=== PATIENT | female | born 1970 | race Caucasian/White ===

== ENCOUNTER → 2017-03-28 | Outpatient (CLI) | payer OTHER | LOC: COL.RAD 09:31 | DX: K80.20 Calculus of gallbladder without cholecystitis without obstruction (principal) ==

== ENCOUNTER 2020-05-19 07:07 | Inpatient (IN) | payer BC ==
[2020-05-19] VITALS (755 sets, daily range): BP systolic 100–132; BP diastolic 57–81; PULSE 58–63; TEMP 98.2–98.7; O2SAT 80–100
[~2020-05-19] VITALS: Ht 157.5 cm; Wt 75.5 kg
[2020-05-19] MEDS ORDERED: ISOPTIN SR240 MG PO (07:29)
[2020-05-19] MEDS ORDERED: IMITREX100 MG PO (07:36)
[2020-05-19 07:54] LABS: BASO % 0.3 % (0.0-2.0); EOS # 0.1 (0.0-0.7); EOS % 1.4 % (0-4.0); GRAN # 4.7 (1.4-6.5); GRAN % 64.3 % (42.2-75.2); LYMPH % 27.5 % (20.0-51.0); MEAN CELL VOLUME 89 fl (80.0-100.0); MEAN CORPUSCULAR HEMOGLOBIN 30 pg (27.0-31.0); MEAN CORPUSCULAR HGB CONC 33 g/dl (33.0-37.0); MEAN PLATELET VOLUME 10.1 fl (7.4-10.4); MONO # 0.4 (0.1-0.6); MONO % 5.7 % (1.7-9.3); PLATELET COUNT 306 K/mm3 (130-400); RED BLOOD COUNT 4.05 M/mm3 (4.10-5.30); REDCELL DISTRIBUTION WIDTH-CV 12.9 % (11.5-14.5)
[2020-05-19 08:00] LABS: HEMATOCRIT 36.2 % (37.0-47.0)
[2020-05-19 08:01] LABS: ALANINE AMINOTRANSFERASE 25 U/L (4-34); ALBUMIN 3.9 gm/dL (3.5-5.0); ALKALINE PHOSPHATASE 66 U/L (50-136); ANION GAP 11 mmol/L (7-16); AST,SGOT 32 U/L (15-37); BILIRUBIN,TOTAL 0.5 mg/dL (0.0-1.0); BLOOD UREA NITROGEN 15 mg/dL (7-17); CALCIUM 8.8 mg/dL (8.4-10.2); CARBON DIOXIDE 22 mmol/L (22-30); CHLORIDE 105 mmol/L (98-107); CREATININE, serum 0.82 (0.52-1.25); GLUCOSE 108 mg/dL (74-106); LIPASE 211 U/L (23-300); MAGNESIUM 2.1 mg/dL (1.6-2.3); POTASSIUM 3.7 mmol/L (3.4-5.0); SODIUM 138 mmol/L (137-145); TOTAL PROTEIN 7.3 gm/dL (6.4-8.2)
[2020-05-19 08:18] LABS: TROPONIN-I < 0.012 ng/mL (0.000-0.035)
[2020-05-19 08:55] LABS: COLLECTION METHOD CLEAN CATCH
[2020-05-19 09:12] LABS: MUCOUS Present /lpf; PH 6 (5-8); SQUAMOUS EPITHELIAL 0-2 /hpf; URINE APPEARANCE Clear; URINE BACTERIA None Seen /hpf; URINE BILIRUBIN Negative (NEGATIVE); URINE BLOOD 1+ (NEGATIVE); URINE COLOR Yellow; URINE GLUCOSE Negative (NEGATIVE); URINE KETONE Negative (NEGATIVE); URINE LEUKOCYTE ESTERASE Negative (NEGATIVE); URINE NITRATE Negative (NEGATIVE); URINE PROTEIN(semi-quant) Negative (NEGATIVE); URINE RBC 0-2 /hpf; URINE UROBILINOGEN Negative (NEGATIVE)
--- NOTE | 2020-05-19 11:11 | NUR ---
Dr Loaiza and Dr Ayala in to see pt.
--- NOTE | 2020-05-19 13:20 | NUR ---
Poultry Scalder met with patient and patient's , Charles (ph#[phone]) to discuss discharge planning. Patient lives in [facility] with Charles and sees Dr. Zapata for primary care. Patient obtains medications from [facility] with no difficulties. Patient does not use any DME and is independent with [facility]. Patient does not have Advance Directives and was not interested in setting them up at this time. Patient states she and her are moving back to [place], [place] in a few weeks and may consider setting this up after they move. Patient plans to return home upon discharge. No needs identified at this time.
--- NOTE | 2020-05-19 19:20 | NUR ---
RECEIVED REPORT FROM TORY JIN. PT SITTING UP IN BED ON RA WATCHING TV. CALL LIGHT WITHIN REACH. VSS.
--- NOTE | 2020-05-19 19:25 | NUR ---
Report given to Marshall SPEARS and care transfered.
[2020-05-20] VITALS (314 sets, daily range): BP systolic 124–141; BP diastolic 62–87; PULSE 61–92; TEMP 98.2–98.6; O2SAT 91–100
--- NOTE | 2020-05-20 02:20 | NUR ---
PT CALLS NURSE INTO ROOM AND C/O PAIN UNDERNEATH RT RIB CAGE AND RT SHOULDER PAIN. NEW ORDERS RECEIVED.
[2020-05-20 06:02] LABS: BASO % 0.3 % (0.0-2.0); EOS # 0.1 (0.0-0.7); EOS % 1.5 % (0-4.0); GRAN # 4.2 (1.4-6.5); GRAN % 67.6 % (42.2-75.2); HEMOGLOBIN 11.1 g/dl (12.5-16.0); LYMPH # 1.5 (1.2-3.4); LYMPH % 23.7 % (20.0-51.0); MEAN CELL VOLUME 90 fl (80.0-100.0); MEAN CORPUSCULAR HEMOGLOBIN 30 pg (27.0-31.0); MEAN CORPUSCULAR HGB CONC 33 g/dl (33.0-37.0); MEAN PLATELET VOLUME 9.7 fl (7.4-10.4); MONO # 0.4 (0.1-0.6); MONO % 6.2 % (1.7-9.3); PLATELET COUNT 243 K/mm3 (130-400); RED BLOOD COUNT 3.76 M/mm3 (4.10-5.30)
[2020-05-20 06:04] LABS: HEMATOCRIT 33.7 % (37.0-47.0)
[2020-05-20 06:17] LABS: ALANINE AMINOTRANSFERASE 57 U/L (4-34); ALBUMIN 3.5 gm/dL (3.5-5.0); ALKALINE PHOSPHATASE 60 U/L (50-136); ANION GAP 6 mmol/L (7-16); AST,SGOT 47 U/L (15-37); BILIRUBIN,TOTAL 0.5 mg/dL (0.0-1.0); BLOOD UREA NITROGEN 9 mg/dL (7-17); CALCIUM 8.3 mg/dL (8.4-10.2); CARBON DIOXIDE 23 mmol/L (22-30); CHLORIDE 109 mmol/L (98-107); CREATININE, serum 0.76 (0.52-1.25); GLUCOSE 84 mg/dL (74-106); POTASSIUM 3.9 mmol/L (3.4-5.0); SODIUM 138 mmol/L (137-145); TOTAL PROTEIN 6.7 gm/dL (6.4-8.2)
[2020-05-20 06:39] LABS: TROPONIN-I < 0.012 ng/mL (0.000-0.035)
--- NOTE | 2020-05-20 13:00 | NUR ---
Report called to Jayashree. Patient transported to surgical unit room 322-2 via wheelchair. Renita packed belongings and carried to new room. IV SL, patient complaining of neck pain without medication relief at time of transport, Jayashree notified.
[2020-05-20] MEDS ORDERED: VERAPAMIL240 MG/TAB PO (13:16)
--- NOTE | 2020-05-20 20:28 | NUR ---
Patient has done well since transfered to the floor from ICU. Only complaint is neck pain. K pad provided & patient took a warm shower. She did not want motrin or roxicodone, felt like it did not relive pain. Patient has tolerated diet. vitals stable on room air. Tele on. her supportive spouse at bedside today. Report to night nurse Carmella
--- NOTE | 2020-05-20 21:00 | NUR ---
PT IN BED, DENIES COMPLAINTS. TAKES HS COLACE AT THIS TIME. IS ALERT AND ORIENTED X4. HAD SHOWER AND NECK IS FEELING BETTER. SL TO LEFT AC FLUSHED WITHOUT PROBLEM. VOIDING WITHOUT PROBLEM.
[2020-05-21 00:58] VITALS: BP 117/57; PULSE 70; TEMP 98
[2020-05-21 04:34] VITALS: BP 112/56; PULSE 78; TEMP 98.1
--- NOTE | 2020-05-21 06:00 | NUR ---
Takes AM med without problem. BS at 0430 was 94. No concerns voiced at this time.
[2020-05-21] MEDS ORDERED: ROXICODONE 55 MG/TAB PO (07:51)
[2020-05-21 08:00] VITALS: BP 124/65; PULSE 77; TEMP 98.7
[2020-05-21 09:30] LABS: ALBUMIN 3.6 gm/dL (3.5-5.0); BILIRUBIN,TOTAL 0.5 mg/dL (0.0-1.0); CALCIUM 8.7 mg/dL (8.4-10.2); CREATININE, serum 0.83 (0.52-1.25); POTASSIUM 3.8 mmol/L (3.4-5.0); TOTAL PROTEIN 6.8 gm/dL (6.4-8.2)
--- NOTE | 2020-05-21 09:45 | NUR ---
PATIENT RESTING IN BED WITH PRESENT AT THE BEDSIDE. PATIENT A&OX4. VSS. TELE IN PLACE. PATIENT DENIES COMPLAINTS OF N/V OR PAIN AT THIS TIME. LEFT AC INT DISCONTINUED PER PENDING DISCHARGE. TIP INTACT. PATIENT TOLERATED WELL. DISCHARGE INSTRUCTIONS REVIEWED WITH PATIENT AND . QUESTIONS SOUGHT. PATIENT DENIES ANY QUESTIONS AT THIS TIME. PATIENT PERSONAL BELONGINGS GATHERED.
--- NOTE | 2020-05-21 10:00 | NUR ---
PATIENT AMBULATED WITH SURGICAL STAFF TO PERSONAL VEHICLE. PATIENT DISCHARGED.
== END 2020-05-21 10:00 | disposition home or self-care (01) | DRG 918 ==
LOC: COL.ER 07:07 → ICU 09:00 → SURG 05-20 13:01
PROVIDERS: Emergency Medicine; ADMIT Internal Medicine
DX: T46.1X1A Poisoning by calcium-channel blockers, accidental (unintentional), initial encounter (principal); R79.89 Other specified abnormal findings of blood chemistry; R10.9 Unspecified abdominal pain; K59.00 Constipation, unspecified; I95.2 Hypotension due to drugs; R00.1 Bradycardia, unspecified; E78.5 Hyperlipidemia, unspecified; G43.909 Migraine, unspecified, not intractable, without status migrainosus; Z96.641 Presence of right artificial hip joint; R07.89 Other chest pain; K29.60 Other gastritis without bleeding; Z90.710 Acquired absence of both cervix and uterus
CPT/HCPCS: 99223-AI; 99232-AI; 99239; C9113; J0461; J0610; J1610; J2270; J2405; J7030

== ENCOUNTER → 2021-03-13 | Outpatient (CLI) | payer BC ==
[~2021-03-13] MED LIST: AMOXICILLIN 8751 TAB PO; IMITREX100 MG PO; ISOPTIN SR240 MG PO; MOTRIN 600600 MG/TAB PO; PERCOCET 325 MG1 TA2 PO; ROXICODONE 55 MG/TAB PO; VERAPAMIL240 MG/TAB PO; VOLTAREN 50MG T50 MG PO
== END ==
LOC: COL.VAS 09:57
DX: G89.18 Other acute postprocedural pain (principal); M79.89 Other specified soft tissue disorders

== ENCOUNTER 2021-03-23 22:04 | Emergency (ER) | payer BC ==
[~2021-03-23] VITALS: Ht 157.5 cm; Wt 72.7 kg
[~2021-03-23 22:04] MED LIST changes: -AMOXICILLIN 8751 TAB PO; -MOTRIN 600600 MG/TAB PO; -PERCOCET 325 MG1 TA2 PO; -VOLTAREN 50MG T50 MG PO
[2021-03-23 22:24] LABS: BASO % 0.4 % (0.0-2.0); EOS # 0.4 (0.0-0.7); EOS % 4.4 % (0-4.0); GRAN # 5.3 (1.4-6.5); GRAN % 62.6 % (42.2-75.2); LYMPH # 2.3 (1.2-3.4); LYMPH % 26.7 % (20.0-51.0); MEAN CELL VOLUME 81 fl (80.0-100.0); MEAN CORPUSCULAR HGB CONC 30 g/dl (33.0-37.0); MEAN PLATELET VOLUME 9.5 fl (7.4-10.4); MONO # 0.4 (0.1-0.6); MONO % 4.6 % (1.7-9.3); PLATELET COUNT 560 K/mm3 (130-400); REDCELL DISTRIBUTION WIDTH-CV 14.4 % (11.5-14.5)
[2021-03-23 22:25] LABS: HEMATOCRIT 30.6 % (37.0-47.0); HEMOGLOBIN 9.2 g/dl (12.5-16.0); MEAN CORPUSCULAR HEMOGLOBIN 24 pg (27.0-31.0)
[2021-03-23 22:37] LABS: ALANINE AMINOTRANSFERASE 29 U/L (4-34); ALBUMIN 4.1 gm/dL (3.5-5.0); ALKALINE PHOSPHATASE 102 U/L (50-136); ANION GAP 12 mmol/L (7-16); AST,SGOT 43 U/L (15-37); BILIRUBIN,TOTAL 0.2 mg/dL (0.0-1.0); BLOOD UREA NITROGEN 13 mg/dL (7-17); CALCIUM 9.4 mg/dL (8.4-10.2); CARBON DIOXIDE 25 mmol/L (22-30); CHLORIDE 103 mmol/L (98-107); CREATININE, serum 0.75 (0.52-1.25); GLUCOSE 127 mg/dL (74-106); LIPASE 180 U/L (23-300); POTASSIUM 3.8 mmol/L (3.4-5.0); SODIUM 140 mmol/L (137-145); TOTAL PROTEIN 8.7 gm/dL (6.4-8.2)
[2021-03-23] MEDS ORDERED: MOTRIN 600600 MG/TAB PO (22:47)
[2021-03-23] MEDS ORDERED: AMOXICILLIN 8751 TAB PO (22:48)
[2021-03-23 22:49] LABS: TROPONIN-I < 0.012 ng/mL (0.000-0.035)
[2021-03-23] MEDS ORDERED: PERCOCET 325 MG1 TA2 PO (22:49)
[2021-03-23 22:52] LABS: COLLECTION METHOD CLEAN CATCH
[2021-03-23 22:57] LABS: MUCOUS Present /lpf; PH 6 (5-8); URINE APPEARANCE Hazy; URINE BACTERIA None Seen /hpf; URINE BILIRUBIN Negative (NEGATIVE); URINE BLOOD Negative (NEGATIVE); URINE COLOR Yellow; URINE GLUCOSE Negative (NEGATIVE); URINE KETONE Negative (NEGATIVE); URINE LEUKOCYTE ESTERASE Negative (NEGATIVE); URINE NITRATE Negative (NEGATIVE); URINE PROTEIN(semi-quant) Negative (NEGATIVE); URINE RBC 0-2 /hpf; URINE UROBILINOGEN Negative (NEGATIVE)
[2021-03-24] MEDS ORDERED: VOLTAREN 50MG T50 MG PO (00:07)
[2021-03-24 01:41] VITALS: BP 128/73; PULSE 73; TEMP 98.1
== END 2021-03-24 01:57 | disposition home or self-care (01) ==
LOC: COL.ER 22:04
PROVIDERS: Physician Assistant
DX: K80.50 Calculus of bile duct without cholangitis or cholecystitis without obstruction (principal); D64.9 Anemia, unspecified; Z90.710 Acquired absence of both cervix and uterus
CPT/HCPCS: J2270; J2405; J7030; Q9967